=== PATIENT | female | born 1960 | race Hispanic/Latino ===

== ENCOUNTER 2016-11-23 08:19 | Day surgery (SDC) | payer MEDICARE, MEDICAID ==
[2016-09-09 04:12] VITALS: BMI 27.4
[2016-11-23] MEDS ORDERED: Lactated Ringer's 500 ML IV ONE (09:00)
[2016-11-23] MEDS ORDERED: Propofol 10 mg/ml Inj (20 ML) ONE (11:00)
[2016-11-23] MEDS ORDERED: Midazolam 2 MG/2 ML VIAL ONE (11:00)
[2016-11-23] MEDS ORDERED: EPINEPHrine 1 mg/ml (1:1000) Inj ONE (11:26)
[2016-11-24 15:49] VITALS: TEMP 96.8
[2016-11-24 15:59] VITALS: BP 110/67; PULSE 61; RESP 16; O2SAT 100
== END 2016-11-23 12:30 | disposition home or self-care (01) ==
LOC: H.ENDO 08:19
PROVIDERS: ATTEND Internal Medicine Gastroenterology
DX: K25.4 Chronic or unspecified gastric ulcer with hemorrhage (principal); K21.9 Gastro-esophageal reflux disease without esophagitis; K57.30 Diverticulosis of large intestine without perforation or abscess without bleeding; K64.8 Other hemorrhoids; Z98.84 Bariatric surgery status; Z88.6 Allergy status to analgesic agent
CPT/HCPCS: 43239; 43255; 45380; 88305; J0171; J2001; J2250; J2704; J3010; J7120

== ENCOUNTER 2017-03-08 07:08 | Day surgery (SDC) | payer MEDICARE, MEDICAID ==
[2016-09-09 04:12] VITALS: BMI 27.4
[2017-03-08] MEDS ORDERED: Lactated Ringer's 500 ML IV ONE (07:50)
[2017-03-08] MEDS ORDERED: Propofol 10 mg/ml Inj (20 ML) ONE (08:05)
[2017-03-08 09:20] VITALS: TEMP 97
[2017-03-08 09:32] VITALS: BP 105/67; PULSE 74; RESP 18; O2SAT 99
== END 2017-03-08 09:46 | disposition home or self-care (01) ==
LOC: H.ENDO 07:08
PROVIDERS: ATTEND Internal Medicine Gastroenterology
DX: K29.50 Unspecified chronic gastritis without bleeding (principal); Z98.0 Intestinal bypass and anastomosis status
CPT/HCPCS: 43239; 88305; J2001; J2704; J7120